=== PATIENT | male | born 1955 | race Caucasian/White ===

== ENCOUNTER 2020-10-14 12:12 | Day surgery (SDC) | payer BC ==
[2020-10-08 16:32] VITALS: BMI 26.6
[~2020-10-14 12:12] MED LIST: BUPIVACAINE HCL/PF 0.5% (5MG/ML) 10 ML VIAL IJ ONE; MORPHINE SULFATE/PF 10 MG/ML ML IT ONE
[2020-10-14] MEDS ORDERED: MORPHINE SULFATE 10 MG/1 ML *VIAL ONE (13:33)
[2020-10-14] MEDS ORDERED: MIDAZOLAM HCL 2 MG/2 ML SINGLE DOSE VIAL ONE (13:43)
[2020-10-14] MEDS ORDERED: BUPIVACAINE HCL/PF 0.5% (5 MG/ML) 30 ML VIAL IJ ONE (14:11)
[2020-10-14] MEDS ORDERED: MORPHINE SULFATE/PF 10 MG/ML ML IT ONE (14:44)
[2020-10-14] MEDS ORDERED: BUPIVACAINE HCL/PF 0.5% (5MG/ML) 10 ML VIAL IJ ONE (14:44)
[2020-10-14] MEDS ORDERED: ONDANSETRON 4 MG/2 ML VIAL IVPUSH PRN (15:52)
[2020-10-14] MEDS ORDERED: PROMETHAZINE HCL 25 MG/1 ML VIAL IVPUSH PRN (15:52)
[2020-10-14] MEDS ORDERED: oxyCODONE HCL 5 MG TABLET PO PRN ×2 (15:52)
[2020-10-14 15:53] VITALS: TEMP 98.2
[2020-10-14 17:15] VITALS: BP 122/74; PULSE 79
== END 2020-10-14 17:00 | disposition home or self-care (01) ==
LOC: FASU 12:12
PROVIDERS: ATTEND Orthopaedic Surgery
PROC: 0SQC4ZZ Repair Right Knee Joint, Percutaneous Endoscopic Approach (ICD-10-PCS; 2020-10-14)
PROC: 0SBC4ZZ Excision of Right Knee Joint, Percutaneous Endoscopic Approach (ICD-10-PCS; 2020-10-14)
PROC: 0SNCXZZ Release Right Knee Joint, External Approach (ICD-10-PCS; 2020-10-14)
PROC: 0SBC4ZZ Excision of Right Knee Joint, Percutaneous Endoscopic Approach (ICD-10-PCS; principal; 2020-10-14 14:14)
DX: S83.281A Other tear of lateral meniscus, current injury, right knee, initial encounter (principal); S83.241A Other tear of medial meniscus, current injury, right knee, initial encounter; S83.511A Sprain of anterior cruciate ligament of right knee, initial encounter; M65.9 Synovitis and tenosynovitis, unspecified; X58.XXXA Exposure to other specified factors, initial encounter; Y93.9 Activity, unspecified; Y92.9 Unspecified place or not applicable; Y99.9 Unspecified external cause status; M25.661 Stiffness of right knee, not elsewhere classified
CPT/HCPCS: 94760

== ENCOUNTER 2021-01-20 07:28 | Day surgery (SDC) | payer BC ==
[2021-01-15 15:17] VITALS: BMI 26.6
[2021-01-20] MEDS ORDERED: PROPOFOL 20 ML ONE ×2 (07:41)
[2021-01-20 07:44] VITALS: TEMP 97.8
[2021-01-20 10:54] VITALS: BP 105/67; PULSE 63
== END 2021-01-20 10:05 | disposition home or self-care (01) ==
LOC: FASU-ENDO 07:28
PROVIDERS: ATTEND Internal Medicine Gastroenterology
PROC: 0DJD8ZZ Inspection of Lower Intestinal Tract, Via Natural or Artificial Opening Endoscopic (ICD-10-PCS; principal; 2021-01-20 09:04)
DX: Z12.11 Encounter for screening for malignant neoplasm of colon (principal)

== ENCOUNTER 2023-10-21 10:31 | Emergency (ER) | payer OTHER, BC ==
[2023-10-21 10:40] VITALS: BMI 25.8
[2023-10-21] MEDS ORDERED: ONDANSETRON 4 MG/2 ML VIAL ONE (11:29)
[2023-10-21 11:39] LABS: HEMATOCRIT 47.8 % (35.4-49); HEMOGLOBIN 16.1 G/dL (11.7-16.9); MCHC 33.6 g/dl (32.0-35.9); MEAN CELL VOLUME 92.1 fl (80-96); MEAN PLT VOLUME 8.6 fl (7.5-11.1); PLATELET COUNT 152.9 10^3/uL (134-434); RBC 5.19 10^6/uL (4.00-5.60); RDW 14.3 % (11.9-15.9); WHITE BLOOD COUNT 10.5 10^3/uL (4.0-10.8)
[2023-10-21] MEDS: ONDANSETRON 4 MG/2 ML VIAL IVPUSH ONE (11:39)
[2023-10-21 12:07] LABS: ALBUMIN 4.4 g/dl (3.4-5.0); BILIRUBIN,TOTAL 1.5 mg/dl (0.2-1); CALCIUM 9.3 mg/dl (8.5-10.1); CREATININE 0.9 mg/dl (0.6-1.3); POTASSIUM 3.7 mmol/L (3.5-5.1)
[2023-10-21 12:25] LABS: PLATELET ESTIMATE ADEQUATE
[2023-10-21 12:28] LABS: EPITHELIAL CELLS 0-5 /hpf
[2023-10-21] MEDS ORDERED: ACETAMINOPHEN INJECTION 100 ML IVPB ONE (15:56)
[2023-10-21] MEDS: ACETAMINOPHEN 1000 MG/100 ML BAG IVPB ONE (16:10)
[2023-10-21] MEDS ORDERED: ALBUTEROL SO4 2.5/IPRATROPIUM 0.5 INH SOL 3 ML VIAL.NEB. NEB ONE (16:42)
[2023-10-21] MEDS: ALBUTEROL SO4 2.5/IPRATROPIUM 0.5 INH SOL 3 ML VIAL.NEB. NEB ONE (16:50)
[2023-10-21 17:20] VITALS: BP 115/68; PULSE 78; RESP 16; TEMP 99
== END 2023-10-21 17:05 | disposition home or self-care (01) ==
LOC: FER 10:31
PROC: 3E033NZ Introduction of Analgesics, Hypnotics, Sedatives into Peripheral Vein, Percutaneous Approach (ICD-10-PCS; principal; 2023-10-21)
PROC: 3E033GC Introduction of Other Therapeutic Substance into Peripheral Vein, Percutaneous Approach (ICD-10-PCS; 2023-10-21)
PROC: 3E0F7GC Introduction of Other Therapeutic Substance into Respiratory Tract, Via Natural or Artificial Opening (ICD-10-PCS; 2023-10-21)
DX: R11.2 Nausea with vomiting, unspecified (principal); R05.9 Cough, unspecified; J40 Bronchitis, not specified as acute or chronic; Z20.822 Contact with and (suspected) exposure to COVID-19
CPT/HCPCS: 0241U-QW; 36415; 71046-TC-FY; 76705-TC; 80053; 81003; 81015; 83605; 83690; 85027; 87040; 87086; 93005; 99285-25; J0131

== ENCOUNTER 2023-11-26 08:51 | Day surgery (SDC) | payer OTHER, BC ==
[2023-11-19 11:46] VITALS: BMI 25.2
[2023-11-26 10:14] VITALS: PULSE 79; TEMP 97.6
[2023-11-26 10:34] VITALS: BP 110/74; RESP 18
== END 2023-11-26 10:45 | disposition home or self-care (01) ==
LOC: FASU-ENDO 08:51
PROVIDERS: ATTEND Internal Medicine Gastroenterology
PROC: 0DB68ZX Excision of Stomach, Via Natural or Artificial Opening Endoscopic, Diagnostic (ICD-10-PCS; 2023-11-26)
PROC: 0DB48ZX Excision of Esophagogastric Junction, Via Natural or Artificial Opening Endoscopic, Diagnostic (ICD-10-PCS; 2023-11-26)
PROC: 0DB98ZX Excision of Duodenum, Via Natural or Artificial Opening Endoscopic, Diagnostic (ICD-10-PCS; principal; 2023-11-26 09:30)
DX: K29.50 Unspecified chronic gastritis without bleeding (principal); K20.90 Esophagitis, unspecified without bleeding; R10.13 Epigastric pain
CPT/HCPCS: 88305-TC; 88342-TC

== ENCOUNTER 2024-01-21 06:53 | Day surgery (SDC) | payer OTHER, BC ==
[2024-01-13 13:50] VITALS: BMI 25.2
[2024-01-21] MEDS ORDERED: PROPOFOL 40 ML ONE (07:57)
[2024-01-21 08:14] VITALS: TEMP 97.1
[2024-01-21 08:51] VITALS: BP 101/67; PULSE 71; RESP 18
== END 2024-01-21 09:02 | disposition home or self-care (01) ==
LOC: FASU-ENDO 06:53
PROVIDERS: ATTEND Internal Medicine Gastroenterology
PROC: 0DB68ZX Excision of Stomach, Via Natural or Artificial Opening Endoscopic, Diagnostic (ICD-10-PCS; principal; 2024-01-21 08:06)
DX: Z13.810 Encounter for screening for upper gastrointestinal disorder (principal); K29.50 Unspecified chronic gastritis without bleeding; K31.A0 Gastric intestinal metaplasia, unspecified; K44.9 Diaphragmatic hernia without obstruction or gangrene; K31.9 Disease of stomach and duodenum, unspecified
CPT/HCPCS: 88305-TC; 88342-TC